=== PATIENT | male | born 1945 | race African-American/Black ===

== ENCOUNTER 2018-11-22 10:24 | Inpatient (IN) | payer OTHER ==
[~2018-11-22] VITALS: Ht 180.3 cm; Wt 84.5 kg
[2018-11-22 09:17] LABS: ABSOLUTE NEUTROPHILS 3.4 thou/uL (1.4-8.2); BASOPHILS 1.6 % (0.0-2.0); EOSINOPHILS 3.8 % (0.0-3.0); HEMATOCRIT 41.8 % (42.0-52.0); LYMPHOCYTES 37.7 % (24.0-44.0); MCH 25.5 pg (26.0-34.0); MCHC 33.5 g/dL (28.0-37.0); MCV 76.2 fL (80.0-100.0); MONOCYTES 8.9 % (1.0-8.0); PLATELET COUNT 227 thou/uL (150-400); RBC 5.49 mil/uL (4.50-6.00); RDW 14.7 % (10.5-14.5)
[2018-11-22 09:20] LABS: URINE BILIRUBIN NEGATIVE (Negative); URINE BLOOD NEGATIVE (Negative); URINE CLARITY CLEAR; URINE COLOR YELLOW; URINE GLUCOSE-RANDOM* NEGATIVE (Negative); URINE KETONES NEGATIVE (Negative); URINE LEUKOCYTES-REFLEX NEGATIVE (Negative); URINE NITRITE-REFLEX NEGATIVE (Negative); URINE PROTEIN (DIPSTICK) NEGATIVE (Negative); URINE SPECIFIC GRAVITY <= 1.005 (1.005-1.035); URINE UROBILINOGEN 0.2 E.U./dl (0.2-1.0)
[~2018-11-22 10:24] MED LIST: ASPIR 8181 MG PO; ASPIRIN325 PO; GLUCOPHAGE XR500 MG PO; LIPITOR80 MG PO; MIRALAX17 G1 PO; PROSCAR 5MG TABL5 MG PO; VITAMINC500 PO
--- NOTE | 2018-11-22 14:33 | 2DMMODE ---
[facility] [place] [address] 2 D/M-MODE ECHOCARDIOGRAM Name: POLLO AVENDANO Room #: [facility]#: [id number] Admission: Attend Phys: Eli Myrick MD Discharge: Date of : 41 Date of Service: 11/22/18 1433 Report #: [id number] THIS REPORT FOR: //name// APPROVED REPORT Study performed: 11/22/2018 11:21:38 EXAM: Comprehensive 2D, Doppler, and color-flow Echocardiogram Patient Location: Out-Patient Status: routine BSA: 2.08 HR: 53 bpm BP: 138/78 mmHg Rhythm: NSR/PHUONG Other Information Study Quality: Good Indications Pre-Op CABG, Chest pain. Hx: GA, stent, HLP, DM. 2D Dimensions RVDd: 32.51 mm IVSd: 12.00 (7-11mm) LVOT Diam: 22.11 (18-24mm) LVDd: 47.65 mm PWd: 10.00 (7-11mm) Ascending Ao: 41.00 (22-36mm) LVDs: 35.68 (25-40mm) Aortic Root: 38.37 mm Volumes Left Atrial Volume (Systole) Single Plane 4CH: 44.50 mL Single Plane 2CH: 69.22 mL LA ESV Index: 29.00 mL/m2 Aortic Valve AoV Peak Brando.: 1.24 m/s AO Peak Gr.: 6.14 mmHg LVOT Max P.35 mmHg LVOT Max V: 0.91 m/s TERI Vmax: 2.83 cm2 Mitral Valve E/A Ratio: 0.6 MV Decel. Time: 381.40 ms MV E Max Brando.: 0.36 m/s [facility] [place] [place] [address] 2 D/M-MODE ECHOCARDIOGRAM Name: POLLO AVENDANO Room #: [facility]#: [id number] Admission: Attend Phys: Eli Myrick MD Discharge: Date of : 41 Date of Service: 11/22/18 1433 Report #: [id number] MV A Brando.: 0.59 m/s MV PHT: 110.61 ms IVRT: 124.57 ms Pulmonary Valve PV Peak Brando.: 0.76 m/s PV Peak Gr.: 2.30 mmHg Pulmonary Vein P Vein S: 0.64 m/s P Vein D: 0.36 m/s P Vein S/D Ratio: 1.78 Tricuspid Valve TR Peak Brando.: 2.41 m/s RAP Estimate: 5.00 mmHg TR Peak Gr.: 23.15 mmHg PA Pressure: 28.00 mmHg Left Ventricle The left ventricle is normal size. There is normal LV segmental wall motion. Mild septal hypertrophy is present. Left ventricular systolic function is borderline. LVEF is 50-55%. Mild diastolic dysfunction is present (impaired relaxation pattern). Right Ventricle The right ventricle is normal size. The right ventricular systolic function is normal. Atria Left atrium is mildly dilated. The right atrium size is normal. Aortic Valve The aortic valve is normal in structure. Trace aortic regurgitation. There is no aortic valvular stenosis. Mitral Valve The mitral valve is normal in structure. Mild mitral regurgitation. Tricuspid Valve The tricuspid valve is normal in structure. Mild to moderate tricuspid regurgitation. Estimated PAP is 30 mmHg. Pulmonic Valve The pulmonary valve is normal in structure. Mild pulmonic regurgitation. [facility] [address] [place] [address] 2 D/M-MODE ECHOCARDIOGRAM Name: ELI AVENDANOJOSE RAUL Mccarthy Room #: PRE IN [facility].#: [id number] Admission: Attend Phys: Eli Myrick MD Discharge: Date of : 41 Date of Service: 11/22/181432 Report #: [id number] Great Vessels Aortic root is borderline dilated. Ascending aorta is dilated at 4.1cm. The inferior vena cava is not well visualized. Pericardium There is no pericardial effusion. <Conclusion> LVEF is 50-55%. Mild mitral regurgitation. Ascending aorta is dilated at 4.1cm. <ELECTRONICALLY SIGNED> By: Samuel Land MD, [facility] 11/22/181432 32 143 Samuel Land MD, FACC /INF
[2018-11-22 23:11] LABS: GLYCOHEMOGLOBIN (HGB A1C) 6.7 % (4.8-5.6)
[2018-11-29] VITALS (17 sets, daily range): BP systolic 85–135; BP diastolic 44–69
[2018-11-29 12:48] LABS: HEMOGLOBIN 9.7 gm/dL (14.0-18.0); MCH 25.7 pg (26.0-34.0); MCV 77.9 fL (80.0-100.0); RBC 3.78 mil/uL (4.50-6.00); RDW 14.7 % (10.5-14.5)
[2018-11-29 12:49] LABS: HEMATOCRIT 29.4 % (42.0-52.0)
[2018-11-29 13:02] LABS: INR 1.4
[2018-11-29 13:03] LABS: APTT 26.3 Seconds (24.5-32.8); FIBRINOGEN 186.1 mg/dL (210-360); PROTIME 14.7 Seconds (9.3-11.4)
[2018-11-29 13:34] LABS: POC BE 0 mmol/L (-2.0 to +3.0); POC CA IONIZED 4.5 mg/dL (4.5-5.3); POC GLUCOSE 162 mg/dL (70-99); POC HCO3 25.3 mmol/L (22.0-26.0); POC HEMOGLOBIN 12.9 g/dL (14.0-18.0); POC POTASSIUM 4.2 mmol/L (3.5-5.1); POC SODIUM 141 mmol/L (136-145); POC pCO2 46.5 mmHg (35.0-45.0); POC pH 7.344 (7.360-7.450)
[2018-11-29 13:34] LABS: POC BE 2 mmol/L (-2.0 to +3.0); POC CA IONIZED 3.8 mg/dL (4.5-5.3); POC GLUCOSE 183 mg/dL (70-99); POC HEMOGLOBIN 10.2 g/dL (14.0-18.0); POC SODIUM 142 mmol/L (136-145); POC pCO2 39.4 mmHg (35.0-45.0); POC pH 7.428 (7.360-7.450)
[2018-11-29 13:34] LABS: POC BE -2 mmol/L (-2.0 to +3.0); POC CA IONIZED 3.9 mg/dL (4.5-5.3); POC GLUCOSE 194 mg/dL (70-99); POC HCO3 23.8 mmol/L (22.0-26.0); POC HEMOGLOBIN 9.5 g/dL (14.0-18.0); POC POTASSIUM 3.9 mmol/L (3.5-5.1); POC SODIUM 140 mmol/L (136-145); POC pCO2 42.5 mmHg (35.0-45.0); POC pH 7.357 (7.360-7.450)
[2018-11-29 13:34] LABS: POC BE -3 mmol/L (-2.0 to +3.0); POC GLUCOSE 194 mg/dL (70-99); POC HCO3 22.1 mmol/L (22.0-26.0); POC HEMOGLOBIN 11.2 g/dL (14.0-18.0); POC POTASSIUM 4.1 mmol/L (3.5-5.1); POC SODIUM 140 mmol/L (136-145); POC pCO2 38.1 mmHg (35.0-45.0); POC pH 7.371 (7.360-7.450)
[2018-11-29 13:34] LABS: POC BE 1 mmol/L (-2.0 to +3.0); POC CA IONIZED 4.4 mg/dL (4.5-5.3); POC GLUCOSE 118 mg/dL (70-99); POC HCO3 25.1 mmol/L (22.0-26.0); POC HEMOGLOBIN 12.6 g/dL (14.0-18.0); POC POTASSIUM 3.9 mmol/L (3.5-5.1); POC SODIUM 141 mmol/L (136-145); POC pCO2 37.7 mmHg (35.0-45.0); POC pH 7.431 (7.360-7.450)
[2018-11-29 13:34] LABS: POC BE -1 mmol/L (-2.0 to +3.0); POC CA IONIZED 4.3 mg/dL (4.5-5.3); POC GLUCOSE 128 mg/dL (70-99); POC HCO3 23.9 mmol/L (22.0-26.0); POC HEMOGLOBIN 10.5 g/dL (14.0-18.0); POC POTASSIUM 3.3 mmol/L (3.5-5.1); POC SODIUM 142 mmol/L (136-145); POC pCO2 38.8 mmHg (35.0-45.0); POC pH 7.397 (7.360-7.450)
[2018-11-29 13:34] LABS: POC BE 0 mmol/L (-2.0 to +3.0); POC CA IONIZED 4.4 mg/dL (4.5-5.3); POC GLUCOSE 159 mg/dL (70-99); POC HCO3 24.7 mmol/L (22.0-26.0); POC HEMOGLOBIN 10.2 g/dL (14.0-18.0); POC POTASSIUM 3.4 mmol/L (3.5-5.1); POC SODIUM 142 mmol/L (136-145); POC pCO2 38.7 mmHg (35.0-45.0); POC pH 7.414 (7.360-7.450)
[2018-11-29 13:34] LABS: POC BE 2 mmol/L (-2.0 to +3.0); POC CA IONIZED 3.8 mg/dL (4.5-5.3); POC GLUCOSE 191 mg/dL (70-99); POC HCO3 26.3 mmol/L (22.0-26.0); POC HEMOGLOBIN 10.9 g/dL (14.0-18.0); POC POTASSIUM 3.7 mmol/L (3.5-5.1); POC SODIUM 143 mmol/L (136-145); POC pCO2 41.3 mmHg (35.0-45.0); POC pH 7.411 (7.360-7.450)
[2018-11-29 13:34] LABS: POC BE -5 mmol/L (-2.0 to +3.0); POC GLUCOSE 191 mg/dL (70-99); POC HCO3 20.7 mmol/L (22.0-26.0); POC HEMOGLOBIN 9.5 g/dL (14.0-18.0); POC POTASSIUM 3.7 mmol/L (3.5-5.1); POC SODIUM 140 mmol/L (136-145); POC pCO2 40.4 mmHg (35.0-45.0); POC pH 7.318 (7.360-7.450)
[2018-11-29 13:34] LABS: POC BE 0 mmol/L (-2.0 to +3.0); POC CA IONIZED 3.8 mg/dL (4.5-5.3); POC GLUCOSE 170 mg/dL (70-99); POC HCO3 24.4 mmol/L (22.0-26.0); POC HEMOGLOBIN 10.2 g/dL (14.0-18.0); POC POTASSIUM 3.9 mmol/L (3.5-5.1); POC SODIUM 140 mmol/L (136-145); POC pCO2 38.6 mmHg (35.0-45.0); POC pH 7.409 (7.360-7.450)
[2018-11-29 14:17] LABS: HEMATOCRIT 31.4 % (42.0-52.0); HEMOGLOBIN 10.3 gm/dL (14.0-18.0); MCH 25.6 pg (26.0-34.0); MCHC 32.8 g/dL (28.0-37.0); MCV 78.1 fL (80.0-100.0); RBC 4.02 mil/uL (4.50-6.00); RDW 14.7 % (10.5-14.5); WBC 18.2 thou/uL (4.0-11.0)
[2018-11-29 14:26] LABS: CALCIUM 7.6 mg/dL (8.5-10.1); CREATININE 1.1 mg/dL (0.7-1.3); MAGNESIUM 2.3 mg/dL (1.8-2.4); POTASSIUM 3.5 mmol/L (3.5-5.1)
[2018-11-29 14:33] LABS: APTT 29.2 Seconds (24.5-32.8); INR 1.2
[2018-11-29 15:08] LABS: HCO3 20.6 mmol/L (22.0-26.0); PCO2 40.5 mmHg (35.0-45.0); PO2 201.5 mmHg (80.0-100.0); sO2 99.3 % (92.0-98.0)
[2018-11-29 15:09] LABS: pH 7.325 (7.360-7.450)
[2018-11-29 16:54] LABS: BE(vivo) -6.7 mmol/L (-2 to +3); HCO3 18.7 mmol/L (22.0-26.0); PO2 198.2 mmHg (80.0-100.0); pH 7.322 (7.360-7.450); sO2 99.3 % (92.0-98.0)
--- NOTE | 2018-11-29 17:18 | EKG ---
[address] [address] ELECTROCARDIOGRAM REPORT Name: AVENDANOPOLLO MEIER Room #: 238-P ADM IN M.R.#: [id number] Admission: 11/29/18 Attend Phys: Beto Myrick MD Discharge: Date of : 41 Report #: [id number] THIS REPORT FOR: //name// [facility] Test Date: 2018-11-29 Test Time: 16:58:27 Pat Name: POLLO AVENDANO Department: Room: [facility] Gender: M Web Application Dev Specialist: Mimi AVITIA : 1945 Requested By: Beto Myrick Order Number: [id number] MD: Salazar Palacio Measurements Intervals [place] Rate: 82 P: 35 SD: 198 QRS: 48 QRSD: 94 T: 23 QT: 425 QTc: 497 Interpretive Statements Sinus rhythm No previous ECG available for comparison Electronically Signed On 11-29-2018 17:18:14 VESSEL OPERATOR by Salazar Palacio [email or web address] <ELECTRONICALLY SIGNED> By: Salazar Palacio MD 11/29/18 1718 1658 1658 MD AMMON Amos
[2018-11-29 17:51] LABS: BE(vivo) -6.1 mmol/L (-2 to +3); HCO3 18.7 mmol/L (22.0-26.0); PCO2 34.3 mmHg (35.0-45.0); PO2 98.5 mmHg (80.0-100.0); pH 7.355 (7.360-7.450); sO2 97.3 % (92.0-98.0)
--- NOTE | 2018-11-29 18:36 | NUR ---
PT TRANSFERED TO ICU POST CABG X4. DR. MAGAÑA, OIL AND GAS LEASE PUMPER, RT, AND DR. BUTCHER AT BEDSIDE UPON ARRIVAL TO UNIT. PLACED ON MONITOR. SUSANA HUGGER INITIATED. LABD DRAWN. CARDENE AND PROPOFOL INSFUING UPON ARRIVAL. STOPPED CARDENE, HR'S IN 60S. TITRATED DOWN ON PROPOFOL, SEE MED TITRATION FLOW SHEET. PACER WIRES PRESENT - PACER OFF. SWAN AT 57. PLUERAL AND MEDS TO 1 ATRIUM, -20 SUCTION. LEFT LEG HARVEST SITES, GAUZE AND HALEIGH WRAPPED. CPAP TRAIL DONE ONCE AWAKE - ABG RESULTS COMMUNICATED TO DR. BUTCHER. ORDERS FOR RT TO EXTUBATE. EXTUBATED AT 1705, TOLERATED WELL. ON 40% FACESHIELD. PRN FENTANYL GIVEN FOR PAIN. INSULIN GTT STARTED BASED ON BLOOD SUGAR.
[2018-11-30] VITALS (47 sets, daily range): BP systolic 104–131; BP diastolic 43–63
[2018-11-30 05:43] LABS: HEMATOCRIT 29.9 % (42.0-52.0); HEMOGLOBIN 9.8 gm/dL (14.0-18.0); MCH 25.7 pg (26.0-34.0); MCHC 32.9 g/dL (28.0-37.0); RBC 3.83 mil/uL (4.50-6.00); RDW 15.1 % (10.5-14.5); WBC 13.1 thou/uL (4.0-11.0)
[2018-11-30 06:01] LABS: CREATININE 1.1 mg/dL (0.7-1.3); MAGNESIUM 2.6 mg/dL (1.8-2.4); POTASSIUM 4.1 mmol/L (3.5-5.1)
--- NOTE | 2018-11-30 07:03 | NUR ---
END OF SHIFT SUMMARY: Pt progressing toward goals. Monitor remains sinus rhythm without ectopy. O2 sat > 92% on 3 L. Mediastinal tubes and left plural tube patent to -20 cmH2O, no air leak or crepitus. Sanguinous drainage from both within parameters. Blood sugars well controlled with insulin gtt. Pain controlled with IV Fentanyl prn as ordered. Zofran given x2 for c/o nausea. Pt dangled at bedside x 15 min. this a.m.
--- NOTE | 2018-11-30 08:56 | NUR ---
Nutrition: Received consult S/P CABG. RD to followup when out of ICU and closer to D/C to determine education needs.
--- NOTE | 2018-11-30 10:50 | NUR ---
Case opened to follow for dc planning. Pt is in the ICU s/p CABG pod#1. He is a&ox4 and sitting up in the recliner during my visit this am. His son Valentín was with him; he is in from out of town. The pt reports that he lives with his spouse and both are independent. He has seven steps up to his bedroom and bath. He drives and denies any dc concerns. His is in good health and he has a dtr locally that is also involved and supportive. He does not have any dme. He is hoping he can dc to outpt followup and then cardiac rehab. Cm role introduced. Will follow and remain available should dc needs arise.
--- NOTE | 2018-11-30 12:42 | EKG ---
[address] [address] ELECTROCARDIOGRAM REPORT Name: AVENDANOPOLLO MEIER Room #: 238-P ADM IN M.R.#: [id number] Admission: 11/29/18 Attend Phys: Beto Myrick MD Discharge: Date of : 41 Report #: [id number] THIS REPORT FOR: //name// [facility] Test Date: 2018-11-30 Test Time: 07:16:10 Pat Name: POLLO AVENDANO Department: Room: 238 P Gender: M Printing Technician: GR : 1945 Requested By: Beto Myrick Order Number: [id number] MD: Salazar Palacio Measurements Intervals [place] Rate: 59 P: 58 RI: 170 QRS: 26 QRSD: 103 T: 23 QT: 470 QTc: 466 Interpretive Statements Sinus rhythm Tall R wave in V2, consider RVH or PMI ST elevation suggests acute pericarditis Compared to ECG 11/29/2018 16:58:27 Myocardial infarct finding now present ST (T wave) deviation now present Electronically Signed On 11-30-2018 12:42:19 FIRMWARE ARCHITECT by Salazar Palacio [email or web address] <ELECTRONICALLY SIGNED> By: Salazar Palacio MD 11/30/18 1242 5 5 Salazar Palacio MD /EPI
--- NOTE | 2018-11-30 20:34 | NUR ---
PT POD 1. ALERT/ORIENTED X4. SINUS RHYTHM/PHUONG ON THE MONITOR. ORDERS TO D/C IV AMIO GTT AND START ON PO. SWAN D/C'D THIS AM. HALEIGH BANDAGE REMOVED FROM LEFT LEG. ORIGINAL SURGICAL DRESSINGS IN PLACE. UP TO CHAIR FOR ALL MEALS. WORKED WITH PT/OT. RESTARTED ON PO B/P MEDICATION. INSULIN GTT D/C'D STARTED ON SS LOW DOSE. ART LINE AND MEDS CT X2 D/C'D PER ORDERS FROM DR. BUTCHER. [address] REMAINS, NEW ATRIUM PLACED TO -20 SUCTION. PACER WIRES CAPPED. PT PROGRESSING TOWARDS GOALS.
[2018-12-01] VITALS (16 sets, daily range): BP systolic 95–126; BP diastolic 51–67
--- NOTE | 2018-12-01 04:45 | NUR ---
PATIENT IS PROGRESSING IN HIS CARE PLAN. VITAL SIGNS STABLE WITH PATIENT HAVING COMPLAINTS OF PAIN AND NAUSEA TREATED EFFECTIVELY WITH MEDICATION. POST CABG CARE PROVIDED WITH FREQUENT ASSESSMENT. SURGICAL DRESSING TO CHEST AND LEFT LOWER LEG C/D/I. CHEST TUBE PRODUCING SANGUINEOUS OUTPUT WITH NO SIGNS OF TIDALING OR AIR LEAKAGE. PATIENT USING INCENTIVE SPIROMETER OFTEN TO GOOD EFFECT. CARBAJAL CATHETER PRODUCING ADEQUATE URINARY OUTPUT AND TO BE DISCONTINUED PRIOR TO SHIFT CHANGE. CONTINUE PLAN OF CARE.
[2018-12-01 06:04] LABS: HEMOGLOBIN 9.2 gm/dL (14.0-18.0); MCH 24.9 pg (26.0-34.0); MCHC 31.8 g/dL (28.0-37.0); MCV 78.3 fL (80.0-100.0); RBC 3.7 mil/uL (4.50-6.00); RDW 15.2 % (10.5-14.5); WBC 15.5 thou/uL (4.0-11.0)
[2018-12-01 06:14] LABS: CALCIUM 8.2 mg/dL (8.5-10.1)
--- NOTE | 2018-12-01 07:59 | O ---
[facility] [place] [address] OPERATIVE REPORT Name: POLLO AVENDANO Room #: 238-P ADM IN M.R.#: [id number] Admission: 11/29/18 Attend Phys: Richie Humphries MD Discharge: Date of : 41 Report #: [id number] THIS REPORT FOR: //name// CC: Beto Nguyen DATE OF SERVICE: 11/29/2018 PREOPERATIVE DIAGNOSIS: Coronary artery disease. POSTOPERATIVE DIAGNOSIS: Coronary artery disease. OPERATION: Coronary artery bypass x 4 including left internal mammary artery to left anterior descending artery, saphenous vein to first diagonal and marginal arteries and saphenous vein to posterior descending artery and endoscopic harvest, left greater saphenous vein. SURGEON: Beto Myrick M.D. STILL OPERATOR: CARMELO Tapia. ANESTHESIA: General. INDICATION: The patient is a 73-year-old seen for Dr. Perrin. The patient has severe 3-vessel coronary artery disease and good ventricular function. The patient presents with a history of angina and a previous stent placement for left anterior descending. Current catheterization shows left main and high-grade proximal LAD and circumflex stenoses as well as a total right coronary occlusion. FINDINGS AND TECHNIQUE: After general anesthesia was established, saphenous vein was harvested using an endoscopic approach and prepared for use as a conduit. Exposure was obtained through median sternotomy. Left internal mammary artery was harvested. Pericardial well was made. Cannulation sutures were placed. Heparin was given. Aorta was cannulated. Right atrium was cannulated. Cardioplegia needle was positioned in the aortic root. Retrograde cardioplegic catheter was placed in coronary sinus. Cardiopulmonary bypass was established. The aorta was crossclamped. Antegrade and retrograde cardioplegia were given. Ice was poured into the pericardial well. Heart was stopped. During electromechanical arrest, the distal anastomoses were performed and end-to-side anastomosis was made between vein and the posterior descending artery. Cold cardioplegia was given. Separate segment of vein was sewn in end-to-side fashion to the marginal artery. Cold cardioplegia was given. [facility] [address] [place] [address] OPERATIVE REPORT Name: ROMANAPOLLO Fabio Room #: 238-P [facility] IN M.R.#: [id number] Admission: 11/29/18 Attend Phys: Richie Humphries MD Discharge: Date of : 41 Report #: [id number] same segment of vein was sewn in [id number] fashion to the long first diagonal artery. Cold cardioplegia was given. Left internal mammary artery was sewn in end-to-side fashion to the left anterior descending artery. Patency of this vessel was checked with the temperature technique. Cold cardioplegia was given. Two proximal anastomoses were performed. When these were complete, warm retrograde cardioplegia was given followed by warm continuous blood to the coronary sinus. When this infusion was complete, the crossclamp was removed. De-airing maneuvers were performed. The anastomoses were inspected and found to be satisfactory. As the patient warmed, nice cardiac activity resumed. Chest tubes and pacing wires were placed. A marker was placed around the proximal anastomoses. When the patient was warm, he was weaned from cardiopulmonary bypass. Venous cannula was removed. Protamine was given. The aortic cannula was removed. Flows were measured in bypass grafts. When hemostasis was satisfactory, chest was irrigated with antibiotic solution and closed in the usual fashion. The patient was taken to the Intensive Care Unit in good condition having tolerated the procedure well. All counts reported as correct. <ELECTRONICALLY SIGNED> By: Beto Myrick MD 12/01/18 0759 1618 1628 Beto Myrick MD /nt
--- NOTE | 2018-12-01 14:50 | NUR ---
Assumed care of Pt at 0700. Pt alert and oriented, in no acute distress. Pain well controlled at this time. Breathing comfortably on supplemental oxygen. ambulated around hallway with PT. introducer d/c'd per order . second pleural tube d/c'd by [facility] surgery. midsternal and lower ext dressing c/d/i. vitals stable. anticipating transfer to CCU when bed available. pt progressing toward poc goals.
--- NOTE | 2018-12-01 18:04 | NUR ---
PT TRANSFERED TO THE UNIT FROM THE ICU. PT ORIENTED TO ROOM AND BEDSAPCE - PATIENT UP IN CHAIR FOR DINNER. NO CO'S OF PAIN OR NAUSEA. SCOUT DIET AND FLUIDS. DRESSING TO CHEST AND LEG C/D/I. AT THE BEDSIDE. NO CO'S AT THE PRESENT TIME.
[2018-12-02 00:08] VITALS: BP 120/58
[2018-12-02 05:00] VITALS: BP 129/74
--- NOTE | 2018-12-02 06:33 | NUR ---
PT. AOX4 AT SHIFT CHANGE; RELATIVES PRESENT AT BED SIDE; C/O STERNUM PAIN; PRN PAIN MEDICATION GIVEN; REFUSED MELATONIN; ST. "I DO NOT HAVE A PROBLEM TO SLEEP"; ABLE TO REST WITH EYES CLOSE MOST OF THE NIGHT; CALLED TO WALK TO RESTROOM X2 DURING THE NIGHT; C/O NAUSEA; NO DIZZINESS; ABLE TO WALK; VS WNL; IS RE-INFORCED; ASSESSMENT CHARGED; FOLLOWING POC; WILL PASS ON REPORT.
[2018-12-02 07:49] VITALS: BP 106/61
[2018-12-02 10:55] VITALS: BP 113/65
--- NOTE | 2018-12-02 15:19 | NUR ---
ASSUMED PATIENT CARE THIS AM. PATIENT LYING IN BED, A&O. ROOM AIR. UP X1 ASSIST WITH GAIT BELT. TOLERATING DIET. PATIENT HAS AMBULATED MANY TIMES IN THE HALLWAY TODAY WITH PT/ CARDIAC REHAB NURSE. LOW FALL RISK. PATIENT USES CALL LIGHT APPROPRIATLY. NO COMPLAINTS OF PAIN, N/V, N/T STATED. DRESSINGS C/D/I. WILL CONTINUE TO MONITOR.
[2018-12-02 15:36] VITALS: BP 122/72
[2018-12-02 19:13] VITALS: BP 120/55
[2018-12-03 05:08] VITALS: BP 127/55
[2018-12-03 05:22] LABS: HEMATOCRIT 28.3 % (42.0-52.0); HEMOGLOBIN 9.6 gm/dL (14.0-18.0); MCH 26.2 pg (26.0-34.0); MCHC 33.8 g/dL (28.0-37.0); MCV 77.4 fL (80.0-100.0); RBC 3.65 mil/uL (4.50-6.00); RDW 14.9 % (10.5-14.5); WBC 9.3 thou/uL (4.0-11.0)
[2018-12-03 05:30] LABS: CALCIUM 8.3 mg/dL (8.5-10.1); POTASSIUM 3.7 mmol/L (3.5-5.1)
--- NOTE | 2018-12-03 07:46 | NUR ---
PT. AOX4; ABLE TO REST DURING THE NIGHT; PRN PAIN MEDICATION GIVEN EARLY ON THE MORNING; REFUSED MELATONIN; VS WNL; WALKED TO RESTHROOM IN THE MORNING; REQUESTED SITTING ON CHAIR; NO BM; ASSESSMENT CHARGED; FOLLOWING POC; PASSED ON REPORT.
[2018-12-03 08:00] VITALS: BP 122/57
[2018-12-03 11:49] VITALS: BP 96/50
[2018-12-03 16:00] VITALS: BP 121/61
--- NOTE | 2018-12-03 17:33 | NUR ---
ASSUMED PATIENT CARE AT 0700. A/O X4. PLEASANT. UP AD LAWSON. STERNAL. ABD ANDLEFT LEG SURGICAL DRESSING INTACT. VVS, AFEBRILE. PROGRESSING TOWARDS POC GOALS.
[2018-12-03 20:45] VITALS: BP 109/53
[2018-12-04] VITALS (7 sets, daily range): BP systolic 114–130; BP diastolic 52–64
--- NOTE | 2018-12-04 04:39 | NUR ---
PT. AOX4; REQUESTED PAIN MEDICATION WITH HS MEDS.; ABLE TO REST MOST OF THE NIGHT; VS WNL; ASSESSMENT CHARGED; FOLLOWING POC; WILL PASS ON REPORT.
[2018-12-04] MEDS ORDERED: LOPRESSOR25 PO (13:30)
[2018-12-04] MEDS ORDERED: PACERONE 200 M200 M1 PO (13:30)
[2018-12-04] MEDS ORDERED: FERREX 150 PLU1 EAC1 PO (13:30)
[2018-12-04] MEDS ORDERED: HYDROCODONE-AP1 EAC6 PO (13:31)
[2018-12-04] MEDS ORDERED: COZAAR 25 MG TA25 M1 PO (13:31)
[2018-12-04] MEDS ORDERED: ADULT LOW DOSE81 MG PO (13:32)
--- NOTE | 2018-12-04 15:40 | NUR ---
VSS NSR NOC/ CHEST PAIN, UP IN HALLX 3 TODAY WITH SBA AND TOLERATED WELL, NO C/O CHEST PAIN. SHOWERED TODAY AND TOLERATED WELL. INCISIONS MIDLINE AND LEFT LEG INTACT, WELL APROXIMATED, NO OOZING. REDRESSED. WILL CONTINUE TO MONITER AND CARE FOR PT PER PLAN OF CARE
--- NOTE | 2018-12-04 21:58 | EKG ---
[address] [address] ELECTROCARDIOGRAM REPORT Name: POLLO AVENDANO Room #: 211-[facility] IN .R.#: [id number] Admission: 11/29/18 Attend Phys: Richie Humphries MD Discharge: 12/04/18 Date of : 41 Report #: [id number] THIS REPORT FOR: //name// [facility] Test Date: 2018-12-03 Test Time: 07:00:16 Pat Name: POLLO AVENDANO Department: Room: 211 P Gender: M Pyrotechnic Mixer: BS : 1945 Requested By: Binu Merrill Order Number: [id number] MD: Salazar Palacio Measurements Intervals [place] Rate: 65 P: 64 [place]V: 151 QRS: 35 QRSD: 102 T: -5 QT: 448 QTc: 466 Interpretive Statements Sinus rhythm Posterior infarct, old Baseline wander in lead(s) V3 Compared to ECG 11/30/2018 07:16:10 ST (T wave) deviation no longer present Myocardial infarct finding still present Electronically Signed On 12-04-2018 21:58:21 SOFTWARE INSTALLATION ENGINEER by Salazar Palacio [email or web address] <ELECTRONICALLY SIGNED> By: Salazar Palacio MD 12/04/18 2158 0700 0700 Salazar aPlacio MD /EPI
--- NOTE | 2018-12-06 10:14 | HC ---
[facility] [place] [address] CONSULTATION Name: POLLO AVENDANO Room #: 211-P [facility] IN M.R.#: [id number] Admission: 11/29/18 Attend Phys: Richie Humphries MD Discharge: 12/04/18 Date of : 41 Report #: [id number] THIS REPORT FOR: //name// CC: Beto Nguyen PRIMARY JEWEL HOLE DRILLER: Samuel Land MD [facility]. REASON FOR CONSULTATION: Status post CABG. REQUESTING PHYSICIAN: Beto Myrick MD. PRIMARY CARE PHYSICIAN: Dr. Mayra Nguyen. HISTORY OF PRESENT ILLNESS: The patient is a 73-year-old male who underwent successful coronary bypass graft surgery yesterday. He received a BOWEN to LAD, vein graft to ramus intermedius and obtuse marginal and a saphenous vein graft to PDA. Clinically, he is stable. He has been extubated. He is complaining of having some mild sternal pain. He is in a sinus rhythm. His cardiac index is greater than 2.2 and systolic pressures in the 140s. He has no complaints of shortness of breath or air hunger. He is alert. He has a history of grossly normal LV systolic function, has no edema complaints at this time. Ejection fraction was 50-55 preoperatively. PAST MEDICAL HISTORY: He has the following cardiovascular risk factors of hypertension, hyperlipidemia, diabetes mellitus. He had a remote PCI to his LAD several years ago and has been followed, I think by Dr. Florian in our practice following this. CURRENT MEDICATIONS: Include the following: Albuterol, amiodarone, insulin, nicardipine, fentanyl, amiodarone, hydrocodone. SOCIAL HISTORY: There is no active tobacco use. FAMILY HISTORY: Positive for heart disease. REVIEW OF SYSTEMS: GASTROINTESTINAL: No nausea or vomiting. HEMATOLOGIC: No anemia or bleeding disorders. RENAL: No history of kidney disorders. SKIN: No rashes. [facility] [address] [place] [address] CONSULTATION Name: POLLO AVENDANO Room #: 211-P [facility]#: [id number] Admission: 11/29/18 Attend Phys: Richie Humphries MD Discharge: 12/04/18 Date of : 41 Report #: [id number] NEUROLOGIC: No history of strokes, TIAs, numbness, weakness or slurred speech. GENITOURINARY: No dysuria or hematuria, has a Ruiz catheter. SKIN: No rashes. No complaints of cramping or pain in his legs. EYES: Denies any loss of vision. THROAT: Denies any dysphagia or slurred speech. HEMATOLOGIC: No history of anemia. PHYSICAL EXAMINATION: VITAL SIGNS: Blood pressure is 140/82, sinus rhythm, temperature 37.6, pulse 66. GENERAL: This is a healthy-appearing, elderly black man, in no apparent distress. HEENT: Eyes are intact. No facial asymmetry. NECK: Supple. No jugular venous distention. There is a right-sided central line. NEUROLOGIC: No focal deficits. HEART: Regular. I cannot hear a rub or murmur. LUNGS: Clear to auscultation. ABDOMEN: Nontender. 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 LABORATORY DATA: Electrocardiogram shows a sinus rhythm with mild diffuse upsloping ST segment elevation in a sinus rhythm. Hemoglobin is 9.8, white blood count 13.1, platelet count is 88,000. INR is 1.2. Sodium is 142, creatinine is 1.1, glucose 130. Chest x-ray today shows basilar atelectasis, no infiltrates. IMPRESSION: 1. Status post 4-vessel coronary artery bypass graft. 2. Normal LV systolic function. 3. Hyperlipidemia. 4. Hypertension. 5. Diabetes mellitus. Currently, he is receiving IV infusions of insulin and amiodarone per protocol with stable blood sugars and heart rhythms. We will resume p.o. medications including a statin and aspirin. He is following a routine postoperative course, and we will follow for supportive care. Presently, he is hemodynamically stable. <ELECTRONICALLY SIGNED> By: Jovan Luna MD, FACC 12/06/18 1014 0833 0909 Jovan Luna MD, FACC /nt
== END 2018-12-04 17:01 | disposition home or self-care (01) | DRG 236 ==
LOC: ULTRA 10:24 → EDSTATUS 11:23 → PRE 11:26 → TBA 11-29 05:23 → ICU 11-29 05:23 → PRE 11-29 05:27 → ICU 11-29 13:54 → 2N 12-01 16:51
PROVIDERS: Physician Assistant; ADMIT Surgery Vascular Surgery
DX: I25.10 Atherosclerotic heart disease of native coronary artery without angina pectoris (principal); I10 Essential (primary) hypertension; E78.5 Hyperlipidemia, unspecified; E11.9 Type 2 diabetes mellitus without complications; Z95.5 Presence of coronary angioplasty implant and graft; Z82.49 Family history of ischemic heart disease and other diseases of the circulatory system; Z88.0 Allergy status to penicillin; Z79.82 Long term (current) use of aspirin; Z79.899 Other long term (current) drug therapy
CPT/HCPCS: 10078; 10081; 47000; 47001; 47002; 47297; 48888; 50010; 50249; 50409; 50456; 50498; 50668; 51301; 52131; 52259; 52287; 52314; 53327; 53358; 54118; 56455; 56524; 56525; 56526; 56527; 56528; 56531; 56534; 56668; 56760; 56898; 62110; 62950; 65003; 65020; 65047; 65090; 65120; 65135